=== PATIENT | male | born 1950 | race Caucasian/White ===

== ENCOUNTER → 2021-07-20 | Outpatient (CLI) | payer BC, MEDICARE ==
[~2021-07-20] MED LIST: OMNIPAQUE 350 MG/ML, 100ML BOTTLE ONE
== END | disposition home or self-care (01) ==
LOC: CFH 10:23
PROVIDERS: ATTEND Internal Medicine Cardiovascular Disease
DX: K76.0 Fatty (change of) liver, not elsewhere classified (principal); I77.810 Thoracic aortic ectasia; I25.10 Atherosclerotic heart disease of native coronary artery without angina pectoris; K76.89 Other specified diseases of liver; M51.36 Other intervertebral disc degeneration, lumbar region
CPT/HCPCS: 71275; 74174; Q9967